=== PATIENT | male | born 1990 | race Hispanic/Latino ===

== ENCOUNTER 2025-03-31 12:40 | Emergency (ER) | payer SELFPAY ==
[~2025-03-31] VITALS: Ht 182.9 cm; Wt 97.2 kg
[2025-03-31] MEDS: SODIUM CHLORIDE 0.9% 1000ML 1,000 ML IV STA (13:51)
[2025-03-31] MEDS ORDERED: METFORMIN HCL500 MG PO (14:09)
[2025-03-31] MEDS ORDERED: INSULIN REGULAR, HUMAN 100 UNIT/1 ML ONE (14:16)
[2025-03-31] MEDS: INSULIN REGULAR, HUMAN 100 UNIT/1 ML SQ ONE (14:20)
[2025-03-31 14:42] VITALS: PULSE 67; RESP 16; TEMP 97.5; O2SAT 99
== END 2025-03-31 14:42 | disposition home or self-care (01) ==
LOC: FSED 12:51
DX: E11.65 Type 2 diabetes mellitus with hyperglycemia (principal); E86.0 Dehydration; M54.9 Dorsalgia, unspecified; G89.29 Other chronic pain
CPT/HCPCS: 80053; 81003; 85025; 96372; 99283; J7030